=== PATIENT | male | born 1995 | race Caucasian/White ===

== ENCOUNTER 2017-12-27 04:36 | Emergency (ER) | payer OTHER ==
[~2017-12-27] VITALS: Ht 185.4 cm; Wt 81.0 kg
[2017-12-27 04:38] VITALS: BP 129/73
[2017-12-27] MEDS ORDERED: FLUORESCEIN OPHTHALMIC 1 MG STRIP ONE (05:33)
[2017-12-27] MEDS ORDERED: PROPARACAINE OPHTH 0.5%, 15ML ONE (05:33)
[2017-12-27] MEDS ORDERED: HYDROcodone/APAP 5/325 TABLET PO ONE (06:00)
[2017-12-27] MEDS ORDERED: HYDROcodone/APAP 5/325 TABLET ONE (06:05)
== END 2017-12-27 07:38 | disposition home or self-care (01) ==
LOC: ED 07:32
DX: J01.00 Acute maxillary sinusitis, unspecified (principal)
CPT/HCPCS: 70486; 99284

== ENCOUNTER 2017-12-27 11:14 | Emergency (ER) | payer OTHER ==
[~2017-12-27] VITALS: Ht 185.4 cm; Wt 81.1 kg
[2017-12-27] MEDS ORDERED: DEXAMETHASONE 4 MG/ML, 1ML IV ONE (12:00)
[2017-12-27] MEDS ORDERED: DIPHENHYDRAMINE 50 MG/ML, 1ML IVPush ONE (12:00)
[2017-12-27] MEDS ORDERED: KETOROLAC 30 MG/1 ML IVPush ONE (12:00)
[2017-12-27] MEDS ORDERED: CEFTRIAXONE PMX 1GM/50ML 50 ML IV ONE (12:00)
[2017-12-27] MEDS ORDERED: SODIUM CHLORIDE 0.9% 1,000ML IVBOLUS ONE (12:00)
[2017-12-27] MEDS ORDERED: METOCLOPRAMIDE 5 MG/ML, 2ML IVPush ONE (12:00)
[2017-12-27] MEDS ORDERED: METOCLOPRAMIDE 5 MG/ML, 2ML ONE (12:03)
[2017-12-27] MEDS ORDERED: CEFTRIAXONE PMX 1GM/50ML 50 ML ONE (12:03)
[2017-12-27] MEDS ORDERED: KETOROLAC 30 MG/1 ML ONE (12:03)
[2017-12-27] MEDS ORDERED: DEXAMETHASONE 4 MG/ML, 1ML ONE (12:03)
[2017-12-27] MEDS ORDERED: DIPHENHYDRAMINE 50 MG/ML, 1ML ONE (12:03)
[2017-12-27] MEDS ORDERED: DEXAMETHASONE 4 MG/ML, 5ML ONE (12:21)
[2017-12-27 12:22] LABS: BASOPHILS # (AUTO) 0.02 x10^3/uL (0-0.1); BASOPHILS % (AUTO) 0 % (0-1); EOSINOPHILS # (AUTO) 0.02 x10^3/uL (0-0.4); EOSINOPHILS % (AUTO) 0 % (1-7); LYMPHOCYTES # (AUTO) 1.02 x10^3/uL (1-3.4); LYMPHOCYTES % (AUTO) 7 % (22-44); MD NO; MEAN CORPUSCULAR HEMOGLOBIN 29.8 pg (27.5-34.5); MEAN CORPUSCULAR HGB CONC 33.8 g/dL (33.2-36.2); MEAN CORPUSCULAR VOLUME 88.2 fL (81-97); MEAN PLATELET VOLUME 8.3 fL (7.4-10.4); MONOCYTES # (AUTO) 0.96 x10^3/uL (0.2-0.8); MONOCYTES % (AUTO) 7 % (2-9); NEUTROPHILS # (AUTO) 11.71 x10^3/uL (1.8-6.8); NEUTROPHILS % (AUTO) 85 % (42-75); PLATELET COUNT 264 x10^3/uL (130-400); RED BLOOD COUNT 5.36 x10^6/uL (4.38-5.82); RED CELL DISTRIBUTION WIDTH 12.4 % (9.4-14.8)
[2017-12-27 13:54] VITALS: BP 127/61
== END 2017-12-27 14:06 | disposition home or self-care (01) ==
LOC: ED 12:14
DX: J01.00 Acute maxillary sinusitis, unspecified (principal); Z88.0 Allergy status to penicillin
CPT/HCPCS: 36415; 85025; 96374; 96375; 99284; J0696; J1100; J1200; J1885; J2765; J7030